=== PATIENT | female | born 1930 | race Asian ===

== ENCOUNTER 2017-11-06 08:52 | Emergency (ER) | payer MEDICARE, BC ==
[~2017-11-06] VITALS: Ht 160 cm; Wt 97.0 kg
[2017-11-06 09:34] LABS: BASOPHILS % (AUTO) 0.7 % (0-1); EOSINOPHILS # (AUTO) 0.2 X10'3 (0-0.9); EOSINOPHILS % (AUTO) 3.6 % (0-6); HEMATOCRIT 28.8 % (35.0-45.0); HEMOGLOBIN 9.4 g/dl (12.0-16.0); LYMPHOCYTES # (AUTO) 1.3 X10'3 (1.1-4.8); LYMPHOCYTES % (AUTO) 25.4 % (21-51); MEAN CORPUSCULAR HEMOGLOBIN 32.1 PG (27.0-31.0); MEAN CORPUSCULAR HGB CONC 32.5 % (33.0-36.5); MEAN CORPUSCULAR VOLUME 98.7 FL (78-98); MEAN PLATELET VOLUME 5.9 FL (7.4-10.4); MONOCYTES # (AUTO) 0.6 X10'3 (0-0.9); MONOCYTES % (AUTO) 12.6 % (2-12); NEUTROPHILS # (AUTO) 2.9 X10'3 (1.8-7.7); NEUTROPHILS % (AUTO) 57.7 % (42-75); PLATELET COUNT 256 X10'3 (140-440); RED BLOOD COUNT 2.92 X10'6 (4.20-5.60); RED CELL DISTRIBUTION WIDTH 16.2 % (11.5-14.5); WHITE BLOOD COUNT 5.1 X10'3 (4.5-11.0)
[2017-11-06 09:53] LABS: INR 1.2 INR; PARTIAL THROMBOPLASTIN TIME 31 SECONDS (22-32); PROTHROMBIN TIME 11.9 SECONDS (9.0-12.0)
[2017-11-06 09:54] LABS: ALANINE AMINOTRANSFERASE 22 U/L (12-78); ALBUMIN 3.2 G/DL (3.4-5.0); ALKALINE PHOSPHATASE 84 IU/L (46-116); ANION GAP 5 (8-16); ASPARTATE AMINO TRANSFERASE 23 U/L (10-37); BILIRUBIN,TOTAL 0.6 MG/DL (0.1-1.0); BLOOD UREA NITROGEN 16 MG/DL (7-18); BUN/CREATININE RATIO 19.3 (6.6-38.0); CALCIUM 9.2 MG/DL (8.5-10.1); CHLORIDE 99 MMOL/L (99-107); CREATININE 0.83 MG/DL (0.40-0.90); GLUCOSE 108 MG/DL (70-104); POTASSIUM 3.9 MMOL/L (3.5-5.1); SODIUM 135 MMOL/L (135-145); TOTAL CARBON DIOXIDE 31.3 MMOL/L (24-32); TOTAL PROTEIN 6.4 G/DL (6.4-8.2); eGFR 65 ML/MIN
[2017-11-06 10:00] LABS: CLARITY,URINE CLEAR (Clear); COLOR,URINE YELLOW (Yellow); GLUCOSE, URINE NEGATIVE (Neg); KETONES,URINE NEGATIVE (Neg); LEUKOCYTE ESTERASE ,URINE NEGATIVE (Neg); NITRITES, URINE NEGATIVE (Neg); OCCULT BLOOD,URINE NEGATIVE (Neg); PROTEIN,URINE NEGATIVE (Neg); UROBILINOGEN,URINE 0.2 E.U/dL (0.2-1.0)
[2017-11-06 10:03] LABS: UA COLLECTION TYPE CLN CATCH MIDSTREAM
[2017-11-06] MEDS ORDERED: ATOR20TA PO (10:11)
[2017-11-06] MEDS ORDERED: CALC-212 PO (10:11)
[2017-11-06] MEDS ORDERED: CHOL10002 PO (10:11)
[2017-11-06] MEDS ORDERED: TRIA1TAB5 PO (10:11)
[2017-11-06] MEDS ORDERED: SYN0.088T PO (10:11)
[2017-11-06] MEDS ORDERED: RIVA15TA PO (10:11)
[2017-11-06] MEDS ORDERED: LISI-600 PO (10:11)
[2017-11-06] MEDS ORDERED: MULT-955 PO (10:11)
[2017-11-06] MEDS ORDERED: ALLO100T PO (10:11)
[2017-11-06 12:05] VITALS: BP 125/64
[2017-11-06 12:43] LABS: OCCULT BLOOD STOOL POSITIVE (Neg)
== END 2017-11-06 12:16 | disposition home or self-care (01) ==
LOC: ER 08:53
DX: K62.5 Hemorrhage of anus and rectum (principal); K64.4 Residual hemorrhoidal skin tags; I48.91 Unspecified atrial fibrillation; E78.00 Pure hypercholesterolemia, unspecified; I10 Essential (primary) hypertension; E03.9 Hypothyroidism, unspecified; Z95.1 Presence of aortocoronary bypass graft; Z79.899 Other long term (current) drug therapy
CPT/HCPCS: 36415; 71045; 80053; 81003; 82272; 85025; 85610; 85730; 86885; 86900; 86901; 93005; 99285; P9612